=== PATIENT | male | born 1965 | race Caucasian/White ===

== ENCOUNTER 2018-09-20 06:12 | Inpatient (IN) ==
--- NOTE | 2018-08-31 11:14 | PAT Medication Instructions ---
Medication Instructions Date of Service August 31, 2018 Home Medications Acid Reflux Pill 1 dose PO QAM hydrocodone-acetaminophen 1 tab PO BID PRN naproxen 1 dose PO BID PRN potassium 1 dose PO DAILY red yeast rice 600 mg PO DAILY tramadol 50 mg PO BID PRN ASK your surgeon for instructions naproxen 1 dose PO BID PRN STOP taking 2 weeks before surgery (or as soon as possible if surgery is within 2 weeks) red yeast rice 600 mg PO DAILY DO NOT take the morning of surgery potassium 1 dose PO DAILY Take morning of surgery With a small sip of water, OTHERWISE NOTHING TO EAT OR DRINK AFTER MIDNIGHT: Acid Reflux Pill 1 dose PO QAM hydrocodone-acetaminophen 1 tab PO BID PRN (okay to take up to 4 hours prior to surgery if needed) tramadol 50 mg PO BID PRN (okay to take up to 4 hours prior to surgery if needed) Take evening before surgery hydrocodone-acetaminophen 1 tab PO BID PRN (if needed) tramadol 50 mg PO BID PRN (if needed) Other Notes If you have any questions please call us at [phone] or [phone] or [phone] or [phone]
--- NOTE | 2018-09-01 09:06 | Anesthesiology Consultation ---
Date of Service September 01, 2018 Assessment & Plan (1) Encounter for pre-operative examination: Mild elevated of coags on preop testing; at anesthesiologist discretion AM DOS if recheck needed. Chart Review Chart Review: Acceptable Risk for Surgery and Patient seen in Pre Admission Testing Teaching & Discussion Pre-Anesthesia Teaching/Discussion Notes: Instructed NPO after midnight before surgery,except medications with 15 cc of water. Medication instructions provided according to the PAT guidelines. History Surgery Operation Date: 09/20/18 09:20 Proposed Procedures p Right Total Hip Arthroplasty - Mitch Friedman MD Height/Weight Height: 5 ft 11 in Weight: 100.5 kg Allergies Allergy/AdvReac Type Severity Reaction Status Date / Time niacin Allergy Flushing Verified 08/29/18 09:44 [From Niaspan Extended-Release] Medications Home Medications Medication Instructions Recorded Confirmed Last Taken Acid Reflux Pill 1 dose PO QAM 08/29/18 08/29/18 Unknown hydrocodone-acetaminophen 1 tab PO BID PRN 08/29/18 08/29/18 Unknown naproxen 1 dose PO BID PRN 08/29/18 08/29/18 Unknown potassium 1 dose PO DAILY 08/29/18 08/29/18 Unknown red yeast rice 600 mg PO DAILY 08/29/18 08/29/18 Unknown tramadol 50 mg PO BID PRN 08/29/18 08/29/18 Unknown Past Medical History Medical History Bulging discs LUMBAR SPINE Fibromyalgia GERD (gastroesophageal reflux disease) CONTROLLED Hearing deficit [place] History of gastric ulcer YEARS AGO Hyperlipidemia Migraine Obesity Osteoarthritis Exercise / Class Metabolic Activity II 4-5 Yardwork/Stairs/Walk up hill (DOES REPORT LE NUMBNESS WITH FLIGHT OF STAIRS BUT NO CP/SOB) Past Family History Family History Grandmother (Maternal) Family history of diabetes mellitus Past Surgical History Surgical History History of appendectomy History of carpal tunnel release of both wrists History of cervical spinal surgery ACDF History of colonoscopy W/ POLYPECTOMY History of esophagogastroduodenoscopy (EGD) History of hip surgery RIGHT (HARDWARE PRESENT) History of knee surgery B/L History of tooth extraction Past Anesthesia History No Hx of Anesthesia Complications and No Family Hx of Anesthesia Complications History of PONV No Hx of PONV and No Hx of Motion Sickness Social History Smoking Status: Current every day smoker Do You Dip or Chew Tobacco: Yes (1 CAN/DAY- ADVISED NOT TO CHEW AM DOS) Hx Alcohol Use: Yes alcohol intake frequency: holidays/special occasions only Hx Substance Use: Yes substance use type: does not use Review of Systems Patient denies chest pain, shortness of breath, dyspnea on exertion, cough, wheezing, palpitations. Physical Exam Vital Signs VITALS BP 144/92 P 58 TEMP 97.7 SP02 98%RA RESP 16 Patient advised to followup with PCP regarding elevated BP. PHYSICAL Full neck and c-spine range of motion. Full TMJ range of motion. TMD 3 finger breaths Mallampati Score 2 Dentition: several missing sides/molars; poor dentition Lungs: clear throughout to auscultation Cardiac: regular rate and rhythm, no murmurs noted Spine: normal Carotid arteries: negative bruit Extremities: no edema Testing Laboratory Results 09/01/18 09:18 Blood Type O Positive Antibody Screen NEGATIVE 08/31/18 WBC 8.4 H/H 16.3/48.4 PLATELETS 278 SODIUM 139 POTASSIUM 5.0 CHLORIDE 104 CO2 28 BUN 12 CREATININE 0.80 GLUCOSE 100 PT 12.1 INR 1.2 09/08/18 UA negative Electrocardiogram Date: 08/31/18 Findings: + SB @ (59) Chest X-Ray Date: 09/01/18 Findings: + NAD
--- NOTE | 2018-09-01 09:42 | XRay Report ---
XR chest Pre-admission PA/Lat HISTORY: Preop. COMPARISON: None. FINDINGS: The lungs are clear. Cardiac silhouette is normal in size. No pleural effusions. No pneumot horax. Cervical spinal fusion hardware is noted. IMPRESSION: No acute process. Electronically signed by: Douglas Ashraf M.D. 09/01/2018 9:40 AM
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
[~2018-09-20 06:12] MED LIST: CEFAZOLIN 2000MG 2,000 MG/15 ML SYR IV SCH; LR 500ML BOLUS, THEN 15ML/HR IV SCH; LR 60ML/HR IV SCH; ROPIVACAINE 0.5% HCL/PF 150 MG, BUPIVACAINE 0.5% MPF 30 ML, EPINEPHrine 0.15 MG, Ketoro... INFIL SCH; TRANEXAMIC ACID 1,000 MG **IV Pre-op IV SCH
[2018-09-20] MEDS ORDERED: BUPIVACAINE 0.5 % 5 MG/1 ML PF 10ML VIAL ONE (06:33)
--- NOTE | 2018-09-20 06:38 | History & Physical Bridge Note ---
Date of Service September 20, 2018 History & Physical Bridge Note I have examined the patient, reviewed the History & Physical and in the interval since the performance of the History & Physical I have noted the following changes of clinical significance: consent obtained.no changes noted
[2018-09-20] MEDS ORDERED: LR 500ML BOLUS, THEN 15ML/HR IV SCH (07:30)
[2018-09-20] MEDS ORDERED: MIDAZOLAM HCL 1 MG/ML 2ML VIAL ONE (07:36)
[2018-09-20] MEDS ORDERED: ePHEDrine sulfate 50 MG/ML AMP IV PRN (08:39)
[2018-09-20] MEDS ORDERED: ONDANSETRON INJ 2 MG/ML 2 ML VIAL IV PRN ×2 (08:39→12:40)
[2018-09-20] MEDS ORDERED: ATROPINE SULFATE 0.1 MG/ML 10ML SYR IV PRN (08:39)
[2018-09-20] MEDS ORDERED: fentaNYL citrate 100 MCG/2 ML VIAL IV PRN (08:39)
[2018-09-20] MEDS ORDERED: ORTHO JOINT ANESTHETIC ONE (08:55)
[2018-09-20] MEDS ORDERED: fentaNYL citrate 100 MCG/2 ML VIAL ONE (08:57)
[2018-09-20] MEDS ORDERED: ONDANSETRON INJ 2 MG/ML 2 ML VIAL ONE (09:30)
[2018-09-20] MEDS ORDERED: LIDOCAINE HCL 2% 2 ML VIAL/AMP(20MG/ML) INFIL ONE (09:30)
[2018-09-20] MEDS ORDERED: PROPOFOL IV EMULSION 10 MG/ML 20 ML VIAL IV ONE ×3 (09:30→10:37)
[2018-09-20] MEDS ORDERED: VANCOMYCIN CONSULT ACTIVE PRN (09:40)
--- NOTE | 2018-09-20 10:57 | Post Operative Brief Note ---
Immediate Post Op Note v1 Date of Surgery September 20, 2018 Pre & Post Diagnosis Operation Date: 09/20/18 09:00 Pre-Op Diagnosis: Right Hip End-Stage Degenerative Joint Disease Post-Op Diagnosis: Right Hip End-Stage Degenerative Joint Disease Procedure Operation Date: 09/20/18 09:00 Actual Procedures p Right Total Hip Arthroplasty--Uncemented(Right) - Mitch Friedman MD Surgeon Mitch Friedman MD Horticultural Farmworker savannah/leigh Estimated Blood Loss 150 Findings Consistent with Post-Op Diagnosis
--- NOTE | 2018-09-20 11:13 | Operative Report ---
Post Operative Report Pre & Post Diagnosis Operation Date: 09/20/18 09:00 Pre-Op Diagnosis: Right Hip End-Stage Degenerative Joint Disease Post-Op Diagnosis: Right Hip End-Stage Degenerative Joint Disease Procedure Operation Date: 09/20/18 09:00 Actual Procedures p Right Total Hip Arthroplasty--Uncemented(Right) - Mitch Friedman MD Surgeon Mitch Friedman MD Pier Hand Helper savannah BRANHAM/leigh BRANHAM Estimated Blood Loss 150 Findings Consistent with Post-Op Diagnosis Specimens bone and soft tissue Anesthesia Type Spinal MAC Complications none Disposition Accompanied Patient To Recovery: No Disposition: Recovery Room Description of Procedure Patient was taken to the operating room, given spinal anesthesia, given 2 gm of IV Ancef for surgical prophylaxis. Time out performed, prepped and draped in routine sterile fashion. I was present for the last half of the case and assisted with exposure, implant sizing, implantation of prosthesis, closure and dressings. Patient was awakened and taken to the recovery room in stable condition. I attest to the content of the Intraoperative Record and any orders documented therein. Any exceptions are noted below.
[2018-09-20] MEDS: VANCOMYCIN HCL 1,500 MG in SODIUM CHLORIDE 0.9% 250 ML IV ONE ×2 (11:16→13:23)
[2018-09-20] MEDS ORDERED: VANCOMYCIN HCL 1,500 MG in SODIUM CHLORIDE 0.9% 500 ML IV ONE (11:30)
--- NOTE | 2018-09-20 11:37 | XRay Report ---
XR hip 1V RT w pelvis CLINICAL HISTORY: IN PACU - A/P PELVIS and LATERAL HIP COMPARISON: 09/01/2018 DISCUSSION: Pre-existing reconstructive changes of the right acetabulum. Interval placement of a total right hip arthroplasty. Good contact between prosthetic and underlying bone. Expected postoperative soft tissue change. IMPRESSION: Placement of a total right hip arthroplasty in good position. The above report was generated using voice recognition software. It may contain grammatical, syntax or spelling errors. Electronically signed by: Maximino Elder M.D. 09/20/2018 11:36 AM
--- NOTE | 2018-09-20 11:55 | Operative Report ---
DATE OF OPERATION: 09/20/2018 SURGEON: Mitch Friedman MD. YARN SPINNER: Nilson Enrique PA-C throughout the case Hosband for the second half of the case. PREOPERATIVE DIAGNOSIS: Osteoarthritis post-acetabular fracture, right hip. POSTOPERATIVE DIAGNOSIS: Osteoarthritis post-acetabular fracture, right hip OPERATION PERFORMED: Noncemented right total hip replacement. PERIOPERATIVE SITUATION: Medically cleared male who has intractable hip pain, status post acetabular fracture and has retained hardware. They are not a periarticular enough to warrant any removal. At this point in time, we will proceed with a standard hip replacement. SUMMARY OF IMPLANTS: Size 56 acetabular shell sector cup, 6.5 x 30 cancellous screw, femoral Tri-Lock stem 4 high offset 36 x 56 neutral liner and ceramic head 36 x 8.5. ESTIMATED BLOOD LOSS: 150 mL CRYSTALLOID: Per Anesthesia. OPERATION: The patient appropriately identified, site verified, consent verified. Antibiotics confirmed as being given. The patient was placed in left lateral decubitus position. Right lower extremity prepped and draped in usual routine fashion. The old incision was utilized for about 80% of its length. Full thickness flaps raised. The IT band was then identified and then longitudinally opened and extended up into the gluteus carolina fascia. Care taken to dissect the tissue off the sciatic nerve and the capsule. The nerve was not dissected clean. It was left alone. The capsule and short external rotators were then identified. Minor bleeding points controlled with the electrocautery. The short external rotators were released. The capsule was then teed, the hip was then dislocated. There was exuberant amount of scar anteriorly, so even after the osteotomy it was hard to get the head out and eventually once the scar was released it came out. Excellent exposure was obtained. The remaining capsule was released, but not excised. The labrum was excised and then serial reaming carried up to a 56 and a 56 cup impacted into appropriate inclination and anteversion with excellent press fit. An additional 6.5 x 30 screw was placed with excellent purchase. Trial liner was then seated. The hip was then flexed and internally rotated and the proximal femur then prepared with the rongeur dust box worker, lateralizing rasp, and serial broaching up to a size 4 with an excellent fit with a size 4 from medial to lateral. Trial reductions were then carried out up with a high offset neck and a +8.5 head giving excellent stability and leg lengths within millimeters of equality. The hip was then dislocated. The wound was irrigated with Betadine. Hole eliminator seated, the permanent liner seated, the permanent stem and head seated. The hip reduced. It was stable in all planes. Leg lengths were good, maybe at most 2 mm long and then the wound was then irrigated with Betadine, Pulsavac, Betadine one final time and closed with #2 Vicryl for the fascial layer, 2-0 Vicryl for subcutaneous layer and stainless steel clips for skin. Appropriate dressing applied. DVT prophylaxis will be with Coumadin. Receive perioperative antibiotics per protocol. I attest to the content of the Intraoperative Record and any orders documented therein. Any exceptions are noted below. MTDD
--- NOTE | 2018-09-20 11:57 | Anesthesiology Progress Note ---
Date of Service September 20, 2018 Anesthesia Post Procedure Vital Signs Vital Signs: Temp Pulse Pulse Resp BP Pulse Ox 09/20/18 11:45 57 L 13 124/90 98 09/20/18 11:35 52 L 14 165/92 H 98 09/20/18 11:25 52 L 12 140/95 98 09/20/18 11:15 68 12 156/97 H 97 09/20/18 11:05 36.9 C 65 12 148/88 H 98 09/20/18 06:46 36.7 C 60 18 145/99 H 97 Pain Intensity Right Hip: Pain Intensity: 5 Transfer of Care Handoff Completed per policy Notes Mental Status: alert / awake / arousable Patient Amnestic to Procedure: Yes Nausea / Vomiting: adequately controlled Pain: adequately controlled Airway Patency, RR, SpO2: stable & adequate BP & HR: stable & adequate Hydration State: stable & adequate Neuraxial Anesthesia: was administered and sensory block is resolving Anesthetic Complications: no major complications apparent and Pt Satisfied with anesthetic care Notes: Patient complained of dryness and discomfort post op in his L eye. visual acuity unaffected. He did state that years ago he had "a bad scratch" on that eye, and that it still regularly becomes uncomfortable when it is dry. I see no conjunctival injection or obvious abrasion to unassisted exam. I have prescribed some ketorolac eye drops for now, and if this progresses to more significant pain, we could consider antibiotic ointment.
[2018-09-20] MEDS: KETOROLAC 0.5% OP SOLN 5 ML BTL OP SCH ×3 (12:07→18:26)
[2018-09-20] MEDS ORDERED: TAMSULOSIN HCL 0.4 MG CAP PO PRN (12:40)
[2018-09-20] MEDS ORDERED: DiphenhydrAMINE HCL 50 MG/ML VIAL IV PRN (12:40)
[2018-09-20] MEDS ORDERED: METOCLOPRAMIDE HCL INJ 5 MG/ML 2 ML VIAL IV PRN (12:40)
[2018-09-20] MEDS ORDERED: SODIUM CHLORIDE 0.9% 1000ML 1,000 ML IV SCH (12:40)
[2018-09-20] MEDS ORDERED: MAGNESIUM HYDROXIDE SUSP 30 ML UDC PO PRN (12:40)
[2018-09-20] MEDS ORDERED: NALOXONE HCL 0.4 MG/1 ML VIAL/CARP IV PRN (12:40)
[2018-09-20] MEDS ORDERED: HYDROmorphone INJ 0.5 MG/0.5 ML SYR IV PRN (12:40)
[2018-09-20] MEDS ORDERED: ALUMINUM/MAGNESIUM SUSP 30 ML UDC PO PRN (12:40)
[2018-09-20] MEDS ORDERED: BISACODYL 10 MG SUPP PR PRN (12:40)
[2018-09-20 13:28] LABS: Hematocrit (blood only) 38.5 % (42-52); Hemoglobin 13.8 g/dL (14.0-18.0); Mean Corpuscular Volume 82.1 fL (80-100); Mean Platelet Volume 9.1 fL (7.4-10.4); Platelet Count 182 K/uL (130-400); RDW Coefficient of Variation 12.3 % (11.5-14.5); RDW Standard Deviation 36.2 fL (36.4-46.3); Red Blood Count 4.69 M/uL (4.7-6.1); White Blood Count 11.96 K/uL (4.8-10.8)
[2018-09-20 13:40] LABS: Mean Corpuscular Hgb Conc 35.8 g/dL (32-36)
[2018-09-20 13:45] LABS: INR 1.1 (0.9-1.1); Prothrombin Time 10.9 Seconds (9.0-12.0)
[2018-09-20] MEDS: KETOROLAC 30 MG/ML VIAL IV SCH ×2 (14:27→18:34)
[2018-09-20] MEDS: ORTHO WARFARIN NOMOGRAM SCH (14:34)
[2018-09-20] MEDS: ACETAMINOPHEN 1,000 MG/100 ML VIAL IV SCH ×2 (14:43→21:10)
--- NOTE | 2018-09-20 14:53 | Orthopedic Progress Note ---
Date of Service September 20, 2018 Assessment & Plan (1) S/P total hip arthroplasty: PT/OT as ordered Will change dressing in AM DVT prophy with Coumadin and PAIGE's Total hip precautions Ice with EZ wrap Pain control with PO meds Case management eval Plan on discharge home tomorrow with home health services Subjective 53 yo M patient is s/p Right total hip arthroplasty earlier today. Currently doing well. Pain well controlled with PO meds. Pt states that block is wearing off and that he can now feel and move the Right foot and toes. Denies CP, SOB, nausea, vomiting, fever, chills, or sweats. Review of Systems Review of Systems: All systems reviewed & are unremarkable except as noted in HPI & below Physical Exam 2 Physical Exam: Right LE: Hip dressing clean, dry and intact. Knee ROM from 0-90 actively. Calf soft and supple. Able to dorsi/plantar flex foot. Appropriation digital mobility of toes. Able to depict light sensation to touch over plantar surface of foot. Patient is NV intact in Rt LE with easily palpable periph pulses and cap refill < 2 seconds. Results & Data Vital Signs (Past 12 Hours) Vital Signs Temp Pulse Pulse Resp BP Pulse Ox 09/20/18 13:56 36.6 C 68 16 132/87 99 09/20/18 13:08 76 16 168/99 H 98 09/20/18 12:30 36.7 C 60 14 135/84 97 09/20/18 12:15 36.7 C 70 16 129/93 95 09/20/18 12:05 63 13 116/93 98 09/20/18 11:55 70 16 133/95 98 09/20/18 11:45 57 L 13 124/90 98 09/20/18 11:35 52 L 14 165/92 H 98 09/20/18 11:25 52 L 12 140/95 98 09/20/18 11:15 68 12 156/97 H 97 09/20/18 11:05 36.9 C 65 12 148/88 H 98 09/20/18 06:46 36.7 C 60 18 145/99 H 97
[2018-09-20] MEDS ORDERED: TRANEXAMIC ACID 1,000 MG in 0.9 % SODIUM CHLORIDE 100 ML IV SCH (15:30)
[2018-09-20] MEDS ORDERED: WARFARIN SOD 5 MG TAB PO SCH (16:00)
[2018-09-20] MEDS: OXYCODONE HCL IR 5 MG TAB (IMMEDIATE RELEASE) PO PRN ×2 (17:13→23:17)
[2018-09-20] MEDS: CEFAZOLIN 2000MG 2,000 MG/15 ML SYR IV SCH (18:26)
[2018-09-20] MEDS: DOCUSATE SODIUM 100 MG CAP PO SCH (20:23)
[2018-09-20] MEDS ORDERED: SENNA 8.6 MG TAB PO SCH (21:00)
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
[2018-09-21] MEDS: KETOROLAC 30 MG/ML VIAL IV SCH ×2 (01:14→08:33)
[2018-09-21] MEDS: CEFAZOLIN 2000MG 2,000 MG/15 ML SYR IV SCH (01:14)
[2018-09-21] MEDS: KETOROLAC 0.5% OP SOLN 5 ML BTL OP SCH ×2 (06:17→11:12)
[2018-09-21] MEDS: ACETAMINOPHEN 1,000 MG/100 ML VIAL IV SCH (06:17)
[2018-09-21 06:29] LABS: Basophils # (auto) 0.01 K/uL (0-0.2); Basophils % (auto) 0.1 %; Eosinophils # (auto) 0.01 K/uL (0-0.5); Eosinophils % (auto) 0.1 %; Hematocrit (blood only) 37.1 % (42-52); Hemoglobin 13.1 g/dL (14.0-18.0); Immature Granulocytes # (auto) 0.04 K/uL (0.00-0.02); Immature Granulocytes % (auto) 0.3 %; Lymphocytes # (auto) 1.33 K/uL (1.2-3.4); Mean Corpuscular Hgb Conc 35.3 g/dL (32-36); Mean Corpuscular Volume 82.4 fL (80-100); Mean Platelet Volume 9.2 fL (7.4-10.4); Monocytes # (auto) 1.65 K/uL (0.11-0.59); Monocytes % (auto) 11.2 %; Neutrophils # (auto) 11.73 K/uL (1.4-6.5); Neutrophils % (auto) 79.3 %; Platelet Count 182 K/uL (130-400); RDW Coefficient of Variation 12.3 % (11.5-14.5); RDW Standard Deviation 36.9 fL (36.4-46.3); White Blood Count 14.77 K/uL (4.8-10.8)
[2018-09-21 06:41] LABS: Prothrombin Time 10.6 Seconds (9.0-12.0)
[2018-09-21] MEDS ORDERED: DEXAMETHASONE SOD PHOSPHATE 10 MG in SYRINGE 0 ML IV SCH (07:00)
[2018-09-21 07:02] LABS: BUN Creatinine Ratio 15.8 (10-20); Calcium 8.4 mg/dl (8.5-10.1); Creatinine Clr Calc Pharmacy 105.1 ml/min; Est GFR (African American) 101.1; Est GFR (Non-African American) 87.2; Potassium 4.7 mmol/L (3.5-5.1)
--- NOTE | 2018-09-21 07:30 | Progress Note ---
DATE: 09/21/2018 SUBJECTIVE: Postop day #1 status post right total knee replacement. The patient is doing well. His pain is well managed. He states he can feel his foot better than ever. He notes he can really sleep better in the last several years. OBJECTIVE: Neurovascular check, femoral sciatic nerve is normal. He denies chest pain, shortness of breath, fever, chills, nausea, vomiting or headache. Hematocrit is stable in the 37 range. INR is pending. ASSESSMENT: Doing well. PLAN: To discharge today after dressing change and has a PT, OT session. Discharge on 4 mg Coumadin if INR is 1.5 or less, 2 mg if 1.6-2.0, and hold if it is greater than 2.0.
[2018-09-21] MEDS: DOCUSATE SODIUM 100 MG CAP PO SCH (08:32)
[2018-09-21] MEDS ORDERED: NON-FORMULARY MEDICATION (Potassium 1 EA) PO SCH (09:00)
[2018-09-21] MEDS ORDERED: PANTOprazole 40 MG TAB PO SCH (09:00)
[2018-09-21] MEDS ORDERED: MULTIVITAMIN TAB PO SCH (09:00)
--- NOTE | 2018-09-21 09:34 | Orthopedic Progress Note ---
Date of Service September 21, 2018 Assessment & Plan (1) S/P total hip arthroplasty: PT/OT before discharge today Dressing changed DVT prophy with Coumadin and PAIGE's x 6 wks Goal INR 1.8-2.2: Currently 1.0 so discharged on 4 mg of Coumadin Total hip precautions Abduction pillow use Ice with EZ wrap Pain control with PO meds Plan on discharge home today with home health services Follow up at [facility] as previously scheduled Subjective 53 yo M patient is day 1 s/p Right total hip arthroplasty. Currently doing very well. Pain well controlled with PO meds. Pt states that block wore off and that he can now feel and move the Right foot and toes. Denies CP, SOB, nausea, vomiting, fever, chills, or sweats. Is ready to be discharge home with home health services. Review of Systems Review of Systems: All systems reviewed & are unremarkable except as noted in HPI & below Physical Exam Physical Exam: Right hip. Dressing changed. Incision site closed completely with cookie intact. No fluctuance or discharge/drainage noted. Able to depict light sensation to touch circumfrentially around the incision site. Able to perform SLRT. Log roll causes no pain. Light internal and external rotation of Right LE causes "twinge" type pain in hip. Quad strength 4/5. Calf soft and supple. NV intact. Cap refill < 2 seconds. Periph pulses easily palpable in Rt foot. Results & Data Vital Signs (Past 12 Hours) Vital Signs Temp Pulse Resp BP Pulse Ox 09/21/18 07:47 36.8 C 74 16 129/78 98 09/21/18 03:32 36.9 C 64 14 124/84 97 09/20/18 22:42 37.1 C 79 14 121/77 98 Laboratory Results 09/21/18 09/21/18 09/21/18 Range/Units 06:05 06:00 06:00 WBC 14.77 H (4.8-10.8) K/uL RBC 4.50 L (4.7-6.1) M/uL Hgb 13.1 L (14.0-18.0) g/dL Hct 37.1 L (42-52) % MCV 82.4 (80-100) fL MCH 29.1 (25-34) pg MCHC 35.3 (32-36) g/dL RDW Std Deviation 36.9 (36.4-46.3) fL RDW Coeff of Nataliia 12.3 (11.5-14.5) % Plt Count 182 (130-400) K/uL MPV 9.2 (7.4-10.4) fL Immature Gran % (Auto) 0.3 % Neut % (Auto) 79.3 % Lymph % (Auto) 9.0 % [place] % (Auto) 11.2 % Eos % (Auto) 0.1 % Baso % (Auto) 0.1 % Immature Gran # (Auto) 0.04 H (0.00-0.02) K/uL Neut # (Auto) 11.73 H (1.4-6.5) K/uL Lymph # (Auto) 1.33 (1.2-3.4) K/uL [place] # (Auto) 1.65 H (0.11-0.59) K/uL Eos # (Auto) 0.01 (0-0.5) K/uL Baso # (Auto) 0.01 (0-0.2) K/uL PT 10.6 (9.0-12.0) Seconds INR 1.0 (0.9-1.1) Sodium 139 (136-145) mmol/L Potassium 4.7 (3.5-5.1) mmol/L Chloride 107 (98-107) mmol/L Carbon Dioxide 30 (21-32) mmol/L Anion Gap 2.0 L (3-11) BUN 16 (7-18) mg/dl Creatinine 0.99 (0.6-1.4) mg/dl Est Cr Clr Drug Dosing 105.1 ml/min Est GFR ( Amer) 101.1 Est GFR (Non-Af Amer) 87.2 BUN/Creatinine Ratio 15.8 (10-20) Glucose 116 H (70-99) mg/dl Calcium 8.4 L (8.5-10.1) mg/dl 09/20/18 09/20/18 Range/Units 13:12 13:12 WBC 11.96 H (4.8-10.8) K/uL RBC 4.69 L (4.7-6.1) M/uL Hgb 13.8 L (14.0-18.0) g/dL Hct 38.5 L (42-52) % MCV 82.1 (80-100) fL MCH 29.4 (25-34) pg MCHC 35.8 (32-36) g/dL RDW Std Deviation 36.2 L (36.4-46.3) fL RDW Coeff of Nataliia 12.3 (11.5-14.5) % Plt Count 182 (130-400) K/uL MPV 9.1 (7.4-10.4) fL Immature Gran % (Auto) % Neut % (Auto) % Lymph % (Auto) % [place] % (Auto) % Eos % (Auto) % Baso % (Auto) % Immature Gran # (Auto) (0.00-0.02) K/uL Neut # (Auto) (1.4-6.5) K/uL Lymph # (Auto) (1.2-3.4) K/uL [place] # (Auto) (0.11-0.59) K/uL Eos # (Auto) (0-0.5) K/uL Baso # (Auto) (0-0.2) K/uL PT 10.9 (9.0-12.0) Seconds INR 1.1 (0.9-1.1) Sodium (136-145) mmol/L Potassium (3.5-5.1) mmol/L Chloride (98-107) mmol/L Carbon Dioxide (21-32) mmol/L Anion Gap (3-11) BUN (7-18) mg/dl Creatinine (0.6-1.4) mg/dl Est Cr Clr Drug Dosing ml/min Est GFR ( Amer) Est GFR (Non-Af Amer) BUN/Creatinine Ratio (10-20) Glucose (70-99) mg/dl Calcium (8.5-10.1) mg/dl
[2018-09-21] MEDS: ORTHO WARFARIN NOMOGRAM SCH (11:10)
[2018-09-21] MEDS: OXYCODONE HCL IR 5 MG TAB (IMMEDIATE RELEASE) PO PRN (11:11)
[2018-09-21] MEDS ORDERED: WARFARIN SOD 5 MG TAB PO SCH (16:00)
== END 2018-09-21 11:42 | disposition home health service (06) | DRG 470 ==
LOC: ASU 06:12 → 3E 09:40

== ENCOUNTER 2023-09-14 05:49 | Observation (INO) ==
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
[2023-09-14] MEDS: GABAPENTIN 600 MG DOSE PO SCH (06:43)
[2023-09-14] MEDS: CeleBREX 200 MG CAP PO SCH (06:43)
[2023-09-14] MEDS: ACETAMINOPHEN 500 MG TAB PO SCH (06:44)
[2023-09-14] MEDS: LR 60ML/HR IV SCH (06:45)
[2023-09-14] MEDS: LR 15ML/HR IV SCH (06:45)
[2023-09-14] MEDS ORDERED: DEXAMETHASONE SOD INJ 4 MG/ML VIAL ONE (07:04)
[2023-09-14] MEDS ORDERED: fentaNYL citrate PF 100 MCG/2 ML VIAL ONE (07:04)
[2023-09-14] MEDS ORDERED: LIDOCAINE 2% 2 ML VIAL/AMP(20MG/ML) INFIL ONE (07:04)
[2023-09-14] MEDS ORDERED: GLYCOPYRROLATE 0.2 MG/ML VIAL ONE (07:04)
[2023-09-14] MEDS ORDERED: PROPOFOL IV EMULSION 10 MG/ML 20 ML VIAL IV ONE (07:04)
[2023-09-14] MEDS ORDERED: ROCURONIUM BROMIDE 10 MG/ML 5 ML VIAL IV ONE (07:04)
[2023-09-14] MEDS ORDERED: MIDAZOLAM HCL 1 MG/ML 2ML VIAL ONE (07:04)
[2023-09-14] MEDS ORDERED: ONDANSETRON INJ 2 MG/ML 2 ML VIAL ONE (07:04)
[2023-09-14] MEDS ORDERED: SUGAMMADEX SODIUM 200 MG/2 ML VIAL IV ONE (07:05)
[2023-09-14] MEDS ORDERED: ATROPINE SULFATE 0.1 MG/ML 10ML SYR IV PRN (07:11)
[2023-09-14] MEDS ORDERED: ePHEDrine sulfate 50 MG/ML AMP IV PRN (07:11)
[2023-09-14] MEDS ORDERED: ONDANSETRON INJ 2 MG/ML 2 ML VIAL IV PRN ×2 (07:11→10:56)
--- NOTE | 2023-09-14 07:47 | History & Physical Bridge Note ---
Date of Service September 14, 2023 History & Physical Bridge Note I have examined the patient, reviewed the History & Physical and in the interval since the performance of the History & Physical I have noted the following changes of clinical significance: no changes noted
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
[2023-09-14] MEDS: ceFAZolin 2000MG 2,000 MG/15 ML SYR IV SCH ×2 (07:55→15:43)
[2023-09-14] MEDS: ceFAZolin 330 MG/ML 1 GM VIAL ONE (08:28)
[2023-09-14] MEDS: FLOSEAL HEMOSTATIC MATRIX 10ML TOP ONE (08:29)
[2023-09-14] MEDS ORDERED: ePHEDrine sulfate 50 MG/5 ML SYR ONE (08:39)
--- NOTE | 2023-09-14 09:01 | Operative Report ---
Post Operative Report Pre & Post Diagnosis Operation Date: 09/14/23 07:45 Pre-Op Diagnosis: Cervical Radiculopathy, Degenerative Cervical Spine Post-Op Diagnosis: Cervical Radiculopathy, Degenerative Cervical Spine I identified the patient and participated in the time-out.: Yes Procedure Operation Date: 09/14/23 07:45 Actual Procedures #1 anterior cervical discectomy with bilateral foraminotomies C4-C5. #2 anterior cervical arthrodesis C4-C5. #3 placement of Spira 7 mm cage filled with callus bone graft C4-C5. #4 application of K2 M plate and screws from C4- C5. Surgeon Cleveland Siegel, Plumbing Contractor Estela Nicolas Estimated Blood Loss 10 Findings Consistent with Post-Op Diagnosis Specimens None Indications This is a 58-year-old male presents problems diagnosis of failed course of nonoperative care is here for surgical invention. Description of Procedure Patient was met with identified informed consent obtained. Patient was then taken to the operative suite underwent patient placed in a prone position on the Duy table on top of the Pollo frame. All bony prominences well-padded eyes inspected to ensure no external pressure placed upon them. This point the anterior cervical spine was prepped and draped normal sterile fashion. With the assistance of fluoroscopy identified the C3-4 C5 disc base and a transverse incision was placed along the right anterior aspect the cervical spine overlying this region. Blunt dissection with assistance of bipolar electrocautery is then performed down to and exposing the anterior cervical spine at C3-4 to C5. Self- retaining retractor was placed. Then performed a complete discectomy of C4-C5 out to the uncovertebral joints bilaterally. Mccammon distracting pins were utilized to assist in visualization. I removed all posterior annular fibers and longitudinal ligament. Bilateral foraminotomies performed. Endplates burred to subcortical bleeding bone and a 7 mm spiral cage filled with catalyst bone graft tapped in position. Distracting and pressors removed and a K2 M plate and screws applied with the assistance of fluoroscopy. Incision was then copiously irrigated explored to ensure no damage to surrounding structures remaining bleeding. 10 round LYNN drain inserted. The incision was then closed with 2 Vi cryl in the fascia and 4 Monocryl for final closure. Steri-Strips and sterile dressing placed. Patient waken taken to PACU stable condition. Please note spinal cord monitoring was utilized at the procedure no changes noted. Lastly Estela Nicolas was present at the entire procedure and all the patient positioning complex portion of the surgery and final skin closure. I attest to the content of the Intraoperative Record and any orders documented therein. Any exceptions are noted below.
--- NOTE | 2023-09-14 09:19 | Fluoroscopy Report ---
FL cervical 2-3V CLINICAL HISTORY: C4-C5 ANTERIOR CERVICAL DISECTOMY AND FUSION COMPARISON STUDY: CT cervical spine 04/24/2023 FLUOROSCOPY TIME: 8 seconds FLUOROSCOPY IMAGES: 2 EXPOSURE DOSE: 1.16 mGy FINDINGS: Anterior plate and screw fusion with discectomy redemonstrated at C6-C7. Interval anterior plate and screw fusion with discectomy at C4-C5. Hardware appears intact. Endotracheal tube and surgi corey drainage catheter noted. No definite unexpected opaque foreign bodies. IMPRESSION: Fluoroscopic assistance as above. ACT 112: Negative or not required by law. Electronically signed by: Zacahry Pimentel M.D. 09/14/2023 9:17 AM
[2023-09-14] MEDS: fentaNYL citrate PF 100 MCG/2 ML VIAL IV PRN (09:40)
[2023-09-14] MEDS: HYDROmorphone INJ 2 MG/ML SYR/VIAL IV PRN (10:06)
[2023-09-14] MEDS ORDERED: FAMOTIDINE 20 MG TAB PO PRN (10:56)
[2023-09-14] MEDS ORDERED: ALBUTEROL HFA 8 GM INHALER INH PRN (10:56)
[2023-09-14] MEDS ORDERED: DO NOT ADMINISTER PNEUMOCOCCAL VACCINE PRN (10:56)
[2023-09-14] MEDS ORDERED: ACETAMINOPHEN 500 MG TAB PO PRN (10:56)
[2023-09-14] MEDS ORDERED: HYDROmorphone INJ 0.5 MG/0.5 ML SYR IV PRN (10:56)
[2023-09-14] MEDS ORDERED: ALUMINUM/MAGNESIUM SUSP 30 ML UDC PO PRN (10:56)
[2023-09-14] MEDS ORDERED: DO NOT ADMINISTER FLU VACCINE PRN (10:56)
[2023-09-14] MEDS ORDERED: METOCLOPRAMIDE HCL INJ 5 MG/ML 2 ML VIAL IV PRN (10:56)
[2023-09-14] MEDS ORDERED: NALOXONE HCL 0.4 MG/1 ML VIAL/CARP IV PRN (10:56)
[2023-09-14] MEDS ORDERED: HYDROmorphone INJ 1 MG/ML SYRINGE IV PRN (10:56)
[2023-09-14] MEDS ORDERED: LORazepam 0.5 MG in SYRINGE 0.25 ML IV PRN (10:56)
[2023-09-14] MEDS ORDERED: SOD PHOSPHATE/SOD BIPHOSPHATE ENEMA 132 ML BTL PR PRN (10:56)
[2023-09-14] MEDS ORDERED: diphenhydrAMINE Capsule 25 MG CAP PO PRN (10:56)
[2023-09-14] MEDS ORDERED: LORazepam 0.5 MG TAB PO PRN (10:56)
[2023-09-14] MEDS ORDERED: MAGNESIUM HYDROXIDE SUSP 30 ML UDC PO PRN (10:56)
[2023-09-14] MEDS ORDERED: hydrOXYzine HCl 25 MG TAB PO PRN (10:56)
[2023-09-14] MEDS ORDERED: ACETAMINOPHEN 1,000 MG/100 ML VIAL IV PRN (10:56)
[2023-09-14] MEDS ORDERED: RACEPINEPHRINE 2.25% NEBU SOLN 0.5 ML VIAL INH PRN (10:56)
[2023-09-14] MEDS ORDERED: dexAMETHasone 8 MG in SYRINGE 0 ML IV PRN (10:56)
[2023-09-14] MEDS ORDERED: ONDANSETRON 4 MG OD TAB PO PRN (10:56)
[2023-09-14] MEDS ORDERED: bisacodyL 10 MG SUPP PR PRN (10:56)
[2023-09-14] MEDS ORDERED: PROMETHAZINE HCL 12.5 MG in SODIUM CHLORIDE 0.9% 50 ML IV PRN (10:56)
--- NOTE | 2023-09-14 11:08 | Anesthesiology Progress Note ---
Date of Service September 14, 2023 Anesthesia Post Procedure Vital Signs Vital Signs: Temp Pulse Pulse Resp BP Pulse Ox O2 Del Method 09/14/23 11:01 97.9 F 70 16 126/79 97 Nasal Cannula 09/14/23 10:50 67 10 L 121/83 94 Nasal Cannula 09/14/23 10:40 57 L 10 L 115/79 97 Nasal Cannula 09/14/23 10:30 67 15 139/86 96 Nasal Cannula 09/14/23 10:20 73 20 136/91 96 Nasal Cannula 09/14/23 10:10 64 14 131/86 97 Nasal Cannula 09/14/23 10:00 68 15 124/85 98 Nasal Cannula 09/14/23 09:50 65 13 121/68 99 Oxymask 09/14/23 09:40 56 L 12 107/79 99 Oxymask 09/14/23 09:30 64 17 103/78 97 Oxymask 09/14/23 09:20 61 19 96/69 L 95 Oxymask 09/14/23 09:10 96.8 F L 66 10 L 89/56 L 95 Oxymask 09/14/23 06:28 98.1 F 66 18 154/97 H 98 Room Air O2 Flow Rate 09/14/23 11:01 2 09/14/23 10:50 2 09/14/23 10:40 2 09/14/23 10:30 2 09/14/23 10:20 2 09/14/23 10:10 2 09/14/23 10:00 2 09/14/23 09:50 3 09/14/23 09:40 7 09/14/23 09:30 7 09/14/23 09:20 7 09/14/23 09:10 7 09/14/23 06:28 Pain Intensity Bilateral Neck: Pain Intensity: 4 Transfer of Care Handoff Completed per policy Notes Mental Status: alert / awake / arousable and participated in evaluation Patient Amnestic to Procedure: Yes Nausea / Vomiting: adequately controlled Pain: adequately controlled Airway Patency, RR, SpO2: stable & adequate BP & HR: stable & adequate Hydration State: stable & adequate Anesthetic Complications: no major complications apparent and Pt Satisfied with anesthetic care
[2023-09-14] MEDS: LACTATED RINGER'S 1,000 ML IV SCH (11:26)
[2023-09-14] MEDS ORDERED: Nursing to Pharmacy Communication SCH (14:30)
[2023-09-14] MEDS: oxyCODONE HCL IR 5 MG TAB (IMMEDIATE RELEASE) PO PRN (15:48)
[2023-09-14] MEDS: traMADol HCL 50 MG TABLET PO PRN (18:21)
[2023-09-14] MEDS: DULoxetine HCL 60 MG CAP PO SCH (18:22)
[2023-09-14] MEDS: LOSARTAN POTASSIUM 50 MG TAB PO SCH (20:57)
[2023-09-14] MEDS ORDERED: DULoxetine HCL 60 MG CAP PO SCH (21:00)
[2023-09-14] MEDS: DOCUSATE SODIUM/SENNA 50/8.6MG TAB PO SCH (21:15)
[2023-09-15] MEDS: POLYETHYLENE (MIRALAX) 17 GM PACK PO SCH (05:23)
[2023-09-15 08:08] VITALS: BP 123/75; PULSE 76; RESP 16; TEMP 97.7; O2SAT 97
[2023-09-15] MEDS: dexAMETHasone 8 MG in SYRINGE 0 ML IV SCH (08:21)
[2023-09-15] MEDS: CALCIUM 600MG + VIT D 400 IU TAB PO SCH (08:23)
[2023-09-15] MEDS: PANTOprazole 40 MG TAB PO SCH (08:24)
[2023-09-15] MEDS: TAMSULOSIN HCL 0.4 MG CAP PO SCH (08:24)
--- NOTE | 2023-09-15 08:30 | Discharge Summary ---
Date of Service September 15, 2023 Admission HPI Per Admitting Provider This is a 58-year-old male that presents with chronic persistent neck and arm pain apparently since a course of nonoperative care is here for surgical intervention. Principal Diagnosis Cervical spinal stenosis with radiculopathy Discharge Data Allergies Allergy/AdvReac Type Severity Reaction Status Date / Time niacin Allergy Unknown Flushing Verified 09/14/23 06:20 [From Niaspan Extended-Release] Procedures Performed Operation Date: 09/14/23 07:45 Actual Procedures p C4-C5 Anterior Cervical Discectomy and Fusion, Spinal Cord Monitoring(Not Applicable) - Cleveland Siegel DO Ordered Studies 09/14/23 07:45 FL cervical 2-3V Routine Hospital Course (1) Cervical stenosis of spinal canal: Patient 1 anterior cervical discectomy and fusion tolerated this well was taken to orthopedic for postoperative. Postop he progressed appropriately. Swallowing well. No hoarseness. Extra strength testing. Pain well-controlled. LYNN drain decreasing appropriately. Subsequent discharge home. Discharge orders instructions on the chart for further review. Total Time Total Time Spent Total Time Spent (In Minutes): 20 minutes Discharge Plan Discharge Items Patient Disposition: Home - Self-Care Reason For Visit: Cervical Radiculopathy, Degenerative Cervical Spin Discharge Diagnosis: Cervical spinal stenosis with radiculopathy Activity: As commented below Non-emergency contact: Primary Care Provider Call non-emergency contact if: you have any medication questions Follow-up/Referrals: Bernadette Stanley CRNP [Primary Care Provider] - Diet: Regular Addtl Attending Provider Instructions: ACTIVITY RECOMMENDATIONS: SELF CARE INSTRUCTIONS AFTER CERVICAL FUSIONS 1. No smoking. Smoking drastically decreases the chance of a solid fusion. 2. No bending, lifting more than 5 pounds, or twisting (roll like a log when turning in bed). 3. You may shower 3 days after surgery. Thoroughly dry wound. Do not soak in the tub. 4. Cervical collar: Must be worn at all times including sleeping. You may remove the brace only to bath, eat and if you are sitting in a recliner. 5. Please walk as much as you can for exercise. Gradually increase the distance that you walk as your endurance increases. SPECIAL CARE INSTRUCTIONS: VERY IMPORTANT TO READ AND REVIEW A. Do not take any anti-inflammatory medications (i.e. Indocin, Advil, Aspirin, Naprosyn, Aleve, Motrin, etc.) as these may inhibit the chance of a solid fusion. Tylenol is okay to take. B. Your surgical incision has been closed with a cosmetic suture under the skin that will dissolve in about 6 weeks. In 14 days, you can use a pair of clean scissors and cut the suture that is left outside of the skin at the ends of your incision. C. Complications are uncommon, but please contact us if you have any signs or symptoms of: 1. wound infection (fever higher than 102.5 degrees F, redness, separation of wound, drainage, or increasing pain from the incision) 2. blood clots in legs (pain, swelling, redness and warmth in legs) 3. urinary tract infection (fever higher than 102.5 degrees, burning upon urination or increased frequency of urination) 4. nerve problems (inability to walk on your toes or heels, numbness, loss of bowel or bladder control) 5. any other symptoms that concern you. D. Please call the office at if you have any concerns or questions about your operation or recovery. MANAGING PAIN AFTER SPINAL SURGERY 1. Narcotic medication is intended for short-term use and will be provided for surgical pain. Surgical pain usually lasts for a period of 4-6 weeks. Narcotic medication includes Percocet, Vicodin, Darvocet, Tylenol #3 or Lortab. 2. Longer-term pain is more appropriately treated with non-narcotic medication such as Tylenol ES. 3. Muscle spasm is not appropriately treated with narcotics. Muscle relaxers such as Soma, Flexeril or Skelaxin can be used along with Tylenol ES. 4. Remember that we all live with some "aches and pains". This is not unusual or uncommon after an injury or as we get older. 5. We will provide appropriate medication within the normal guidelines of their prescribed use. We will also be very cautious and aware of potential abuse and extended duration of patients' medication needs. 6. Please allow 2-3 days to process refills. Prescriptions will not be mailed but must be picked up at the office. FOLLOW UP VISIT: Keep your scheduled follow-up appointment. Any questions, please call the office at . Pending Studies at Discharge: No Stand-Alone Forms: [employer], Smoking Cessation Medications and DC Order Prescriptions: New tramadol 50 mg tablet 50 mg PO Q6H PRN (Reason: pain, moderate) Qty: 20 0RF oxycodone 5 mg tablet 5 mg PO Q6H PRN (Reason: pain) Qty: 20 0RF Continued tramadol 50 mg Tablet 50 - 100 mg PO QID PRN (Reason: Pain) red yeast rice 600 mg Capsule 600 mg PO QPM lidocaine [DermacinRx Lidocan] 5 % adhesive patch,medicated 1 patch topical DAILY Qty: 15 0RF Rx Instructions: leave on most painful area for up to 12 hrs cyclobenzaprine 10 mg tablet 10 mg PO TID PRN (Reason: muscle spasm) Qty: 10 0RF pantoprazole 40 mg Tablet,Delayed Release (Dr/Ec) 40 mg PO QAM pitavastatin calcium [Livalo] 2 mg Tablet 2 mg PO QPM albuterol sulfate [ProAir HFA] 90 mcg/actuation HFA aerosol inhaler 4 puff INHALATION QID PRN (Reason: Shortness Of Breath Or Wheezing) losartan 25 mg tablet 100 mg PO QPM Patient Comments: takes daily at 1200 acetaminophen 500 mg Capsule 500 mg PO Q6H PRN (Reason: Pain) potassium 99 mg Tablet 99 mg PO QAM tamsulosin 0.4 mg capsule 0.4 mg PO QAM duloxetine 60 mg Capsule,Delayed Release(Dr/Ec) 60 mg PO QPM Vitamin D (with calcium) 5,000 mg PO DAILY Discharge Orders: Discharge Order (Routine); Ordered 09/15/23 Ordered By: Cleveland Siegel Admission Data Admit Date/Time: 09/14/23 09:04 Attending Provider: Cleveland Siegel Admit Provider: Cleveland Siegel Primary Care Provider: Bernadette Stanley
[2023-09-15] MEDS ORDERED: NON-FORMULARY MEDICATION (Potassium 99 mg Tablet) PO SCH (09:00)
== END 2023-09-15 09:50 | disposition home or self-care (01) ==
LOC: 3E 05:49 → ASU 05:49